=== PATIENT | male | born 1950 | race Caucasian/White ===

== ENCOUNTER 2019-04-05 11:48 | Inpatient (IN) ==
[2019-04-05 12:37] LABS: BASO# 0.05 X1000 (0.0-0.2); BASO% 0.5 % (0.0-0.8); EOS# 0.16 X1000 (0.0-0.7); EOS% 1.6 % (0.0-10.0); HEMOGLOBIN 15.4 g/dL (14.0-18.0); IMM GRAN# 0.02 X1000 (0.0-0.04); IMM GRAN% 0.2 % (0.0-0.5); LYMPH# 1.99 X1000 (1.2-3.4); LYMPH% 19.6 % (20.5-51.1); MCH 27.1 PG (27-31); MCHC 32.8 g/dL (33-37); MCV 82.7 FL (81-99); MONO# 0.57 X1000 (0.11-0.59); MONO% 5.6 % (1.7-9.3); NEUT# 7.35 X1000 (1.4-6.5); NEUT% 72.5 % (42.2-75.2); PLT 321 X1000 (130-400); RBC 5.68 XMIL (4.7-6.1); RDW 15.6 % (11.5-14.5); WBC 10.14 X1000 (4.8-10.8)
[2019-04-05 12:44] LABS: INR 1.01; PROTIME 14.1 Seconds (11.0-16.0); PTT 28.2 Seconds (22.3-41.8)
[2019-04-05 13:13] LABS: ALB/GLOB RATIO 1.5; ALBUMIN 4.3 g/dL (3.5-5.0); CREATININE 1.7 mg/dL (0.7-1.2); MAGNESIUM 1.9 mg/dL (1.5-2.7); POTASSIUM 4.2 mmol/L (3.5-5.1); TOTAL BILIRUBIN 0.85 mg/dL (0.20-1.00); TOTAL PROTEIN 7.2 g/dL (6.3-8.3)
--- NOTE | 2019-04-05 13:33 | Diag Imaging Result Doc PS360 ---
CHEST-2 VIEWS - 04/05/2019 INDICATION: short of breath COMPARISON: 12/25/2018 FINDINGS: There is a trace left pleural effusion which has significantly improved since prior. There is some persistent infiltrate in the lingula and left lower lobe which are fairly similar to prior. Stable surgical changes to the heart. Heart size and pulmonary vascularity is normal. IMPRESSION: Persistent left basilar infiltrate. Trace left pleural effusion that has improved since prior. Continued follow-up recommended. Electronically signed by Navi Alex 04/05/2019 1:30 PM
[2019-04-05] MEDS ORDERED: NS 500 ML IV ONE (13:53)
[2019-04-05] MEDS ORDERED: DUONEB (A & A) INH PRN (14:18)
[2019-04-05] MEDS ORDERED: ZOFRAN IV PRN (14:18)
[2019-04-05] MEDS ORDERED: TYLENOL PO PRN (14:18)
[2019-04-05 15:13] LABS: URINE SOURCE CLEAN CATCH
--- NOTE | 2019-04-05 15:35 | EKG Report ---
Test Performed on : 04/05/2019 11:59:39 AM Test Reason : afib hx; syncope Blood Pressure : / mmHG Vent. Rate : 072 BPM Atrial Rate : 072 BPM P-R Int : 144 ms QRS Dur : 094 ms QT Int : 406 ms P-R-T Axes : -78 064 128 degrees QTc Int : 444 ms Unusual P axis, possible ectopic atrial rhythm. T wave abnormality, consider lateral ischemia Abnormal ECG No previous ECGs available Unconfirmed Result
[2019-04-05] MEDS ORDERED: NS 1,000 ML IV SCH ×2 (15:46→16:23)
[2019-04-05 15:49] LABS: BILIRUBIN URINE SMALL (NEGATIVE); BLOOD URINE MODERATE (NEGATIVE); COLOR YELLOW; GLUCOSE URINE TRACE mg/dL (NEGATIVE); KETONE URINE NEGATIVE (NEGATIVE); LEUKOCYTES URINE NEGATIVE (NEGATIVE); NITRITE URINE NEGATIVE (NEGATIVE); PH URINE 5.5; PROTEIN URINE 100 mg/dL (NEGATIVE); SP GRAVITY URINE 1.026; TURBIDITY URINE HAZY (CLEAR); UROBILINOGEN URINE 2 mg/dL (NORMAL)
[2019-04-05 16:01] LABS: UR EPITHELIAL CELLS >10 /HPF (<10); URINE BACTERIA NEGATIVE /HPF; URINE RBC 20-40 /HPF (<10); URINE WBC <10 /HPF (<10)
[2019-04-05 16:30] LABS: URINE CASTS GRANULAR PRESENT; URINE CRYSTALS CA OXALATE PRESENT
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
--- NOTE | 2019-04-06 01:40 | HISTORY AND PHYSICAL ---
ADDENDUM: Mr. Montano presented to the emergency department today after he blacked. 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 He refers not to have drank enough. After he worked on that structure at home, he was going to use the restroom and his leg does give up on him. He came to the emergency department and was evaluated. His orthostatic vitals were positive with the sitting blood pressure 100, systolic blood pressure was 129/79, and standing was 109/69. The systolic blood pressure had changed 20 mmHg. PHYSICAL EXAMINATION: VITALS: His current vitals, blood pressure is 132/82, pulse of 81, respirations 20, temperature 97.3 degrees. GENERAL: Positives on physical exam, he has an old sternotomy scar from open heart surgery. ABDOMEN: Distended, but nontender. EXTREMITIES: No pedal edema. LUNGS: Clear. CARDIOVASCULAR: Unremarkable. DIAGNOSTIC STUDIES: 1. I have also reviewed his chest x-ray, which shows persistent left basilar infiltrate, but I do not think this is pneumonia. 2. EKG shows normal sinus rhythm with T-wave inversion in the lateral leads, which is not new. The patient's lab work has also been reviewed, significant seems to be hemoconcentrated on the CBC. The creatinine is 1.7, which is new. ASSESSMENT: 1. Syncope on presentation with positive orthostatic vitals. All consistent with orthostatic hypotension, which could have compounded by the fact that patient is on antihypertensive medication. Home medications have been withheld. We are going to adequately hydrate the patient overnight and re-evaluate his vitals in the morning. 2. Acute kidney injury. Likely due to dehydration. We will follow up accordingly after the patient has been fluid resuscitated. 3. Clinical volume depletion. Will continue with the fluids. 4. History of coronary artery disease status post CABG. The patient follows up with Dr. Casey. He is clinically asymptomatic at this point. 5. History of dark stools. Unsure if it is a gastrointestinal bleed or it was all related to the iron pill that the patient has been on. Occult blood testing will be done. For today, Mr. Montano is admitted to the medical floor under tele monitoring. We are going to gently hydrate him overnight. We will also check on his occult blood testing because of a history of dark stools. Follow up on his H and H, and withhold his antihypertensive medications tonight. Please refer to the details of the history and physical, which has been dictated by the SOAP DRIER TENDER in the chart. cc: Carlos Ya MD
[2019-04-06 07:52] LABS: BASO# 0.03 X1000 (0.0-0.2); BASO% 0.4 % (0.0-0.8); EOS# 0.69 X1000 (0.0-0.7); EOS% 8.1 % (0.0-10.0); HEMATOCRIT 42.4 % (42.0-52.0); HEMOGLOBIN 14.1 g/dL (14.0-18.0); IMM GRAN# 0.03 X1000 (0.0-0.04); IMM GRAN% 0.4 % (0.0-0.5); LYMPH# 2.95 X1000 (1.2-3.4); LYMPH% 34.8 % (20.5-51.1); MCH 27.6 PG (27-31); MCHC 33.3 g/dL (33-37); MONO# 0.59 X1000 (0.11-0.59); MPV 10.2 FL (7.4-10.4); NEUT# 4.18 X1000 (1.4-6.5); NEUT% 49.3 % (42.2-75.2); PLT 289 X1000 (130-400); RBC 5.11 XMIL (4.7-6.1); RDW 15.6 % (11.5-14.5); WBC 8.47 X1000 (4.8-10.8)
[2019-04-06 07:54] LABS: INR 1.05; PROTIME 14.5 Seconds (11.0-16.0)
[2019-04-06 08:17] LABS: AGAP 11; ALB/GLOB RATIO 1.5; ALBUMIN 3.9 g/dL (3.5-5.0); ALKALINE PHOSPHATASE 111 U/L (32-122); BUN 24 mg/dL (8-22); CALCIUM 8.8 mg/dL (8.8-10.2); CHLORIDE 100 mmol/L (98-107); COSMO 274; ESTIMATED GFR > 60; GLUCOSE 97 mg/dL (70-104); GOT 21 U/L (10-34); GPT 24 U/L (10-44); MAGNESIUM 1.8 mg/dL (1.5-2.7); POTASSIUM 3.9 mmol/L (3.5-5.1); SODIUM 135 mmol/L (136-145); TCO2 24 mmol/L (25-35); TOTAL BILIRUBIN 0.98 mg/dL (0.20-1.00); TOTAL PROTEIN 6.5 g/dL (6.3-8.3)
[2019-04-06 12:44] VITALS: BP 158/96
--- NOTE | 2019-04-07 16:37 | DISCHARGE SUMMARY ---
ADMISSION DATE: 04/05/2019 DISCHARGE DATE: 04/06/2019 DISPOSITION: Home. FOLLOWUP: 1. Dr. Efren Root. 2. Dr. Edwardo Casey. CONSULTATION DURING THIS ADMISSION: None. IMAGING STUDIES OF SIGNIFICANCE: A chest x-ray was done which showed persistent left basilar infiltrates. There was some trace pleural effusion which has improved since prior. ADMISSION DIAGNOSES: 1. Syncope secondary to heat exhaustion. 2. Acute kidney injury due to dehydration. 3. Possible gastritis. 4. Hypertension. 5. Coronary artery disease, status post coronary artery bypass graft. DIAGNOSES AT THE TIME OF DISCHARGE: 1. Syncope on presentation, secondary to orthostatic hypotension. 2. Clinical volume depletion with dehydration. 3. Acute kidney injury, secondary to #2. 4. History of coronary artery disease, status post coronary artery bypass graft. 5. Dark stools due to iron therapy. Occult blood testing was negative. 6. Dyslipidemia. DISCHARGE MEDICATIONS: 1. Biotin. 2. Eliquis 5 mg b.i.d. 3. Gabapentin 300 b.i.d. 4. Amantadine 20 mg p.o. daily. 5. Crestor 10 mg p.o. at bedtime. 6. Aspirin 81 mg daily. 7. Tamsulosin 0.4 b.i.d. 8. Amlodipine 2.5 daily. PRESENTING COMPLAINT: Passed out. HISTORY OF PRESENTING COMPLAINT: Mr. Montano is a 68-year-old male with a history of coronary artery disease, paroxysmal atrial fibrillation, and hypertension, who came to the emergency department after he passed out at home. Apparently, he has been doing a lot of work in the sun without adequate hydration. When he presented, he was thoroughly evaluated including orthostatic vitals which were positive, consistent with some orthostatic hypotension. His creatinine was also elevated to 1.7. Mr. Montano was admitted for further medical care. HOSPITAL COURSE: Mr. Montano was admitted to the medical floor on telemetry monitoring. He was adequately fluid resuscitated. His blood pressure medications were withheld. During the hospital course, he continued to show improvement. He was able to go to the restroom himself. He tolerated his diet. He was not any more symptomatic. His vitals were rechecked, and he had significantly improved. His lab works were also checked, and his creatinine has improved to 1.0 from 1.7 yesterday. This morning, Mr. Montano is asymptomatic. We think he is fairly stable for discharge. 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 During the hospital course, his telemonitor did not show any abnormal rhythm. Mr. Montano is tolerating his diet and has had bowel movement. We think he is fairly stable for discharge. All the discharge instructions have been discussed with him, and he voiced understanding. TIME SPENT FOR DISCHARGE: 33 minutes. cc: MD Efren Chi MD Peter Johnson, MD
== END 2019-04-06 13:00 | disposition home or self-care (01) | DRG 923 ==
LOC: ED 11:48 → 3N 15:23
PROVIDERS: ATTEND Internal Medicine
CPT/HCPCS: 71020; 71046; 80053; 81001; 82270; 82550; 82948; 83605; 83735; 83880; 84443; 84484; 85025; 85610; 85730; 93005; 94761; 94799; 99285; J7030; J7040; XXXXX